=== PATIENT | male | born 1950 | race Caucasian/White ===

== ENCOUNTER 2018-07-18 11:59 | Day surgery (SDC) | payer MEDICARE, BC ==
[2018-07-18] MEDS ORDERED: Lidocaine 1% MPF wEPI 200,000* 30 ML SDV ONE (12:17)
[2018-07-18] MEDS ORDERED: Sodium Bicarbonate 8.4% SYR* 10 ML SYRINGE ONE (12:17)
[2018-07-18] MEDS ORDERED: Lidocain 1% EPI 1:100,000 * 30 ML MDV ONE (12:17)
[2018-07-18 13:07] VITALS: BP 154/78
[2018-07-18] MEDS ORDERED: Bupivacaine 0.5%* 50 ML VIAL ONE (13:57)
--- NOTE | 2018-07-18 20:43 | OP ---
DATE OF OPERATION: 07/18/18 - [facility] DATE OF : 52 SURGEON: Edwar Rodríguez MD ASSISTANTS: DERREK Dos Santos ANESTHESIOLOGIST: None. ANESTHESIA: Local only with 1% lidocaine with epinephrine and bicarbonate. PRE-OP DIAGNOSES: 1. Left trigger thumb. 2. Left thumb A1 denilson nodule. POST-OP DIAGNOSES: 1. Left trigger thumb. 2. Left thumb A1 denilson nodule. OPERATIVE PROCEDURES: 1. Left thumb trigger thumb release of A1 denilson. 2. Excision of left thumb A1 denilson tendon sheath nodule. INDICATIONS: Chris has a trigger thumb. He has had injections by Dr. Fisher. We had talked about risks and benefits. He wanted to proceed with the procedure to see if he could get some relief from the trigger thumb and the symptoms as he is looking to play the guitar and it is starting to bother him and make it unable for him to play the guitar. ESTIMATED BLOOD LOSS: 1 mL. COMPLICATIONS: None. FINDINGS: See above and below. DESCRIPTION OF PROCEDURE: Chris was seen in the preoperative holding area. The correct site and side of the procedure were identified. We came back to the operating room. The arm was prepped and draped in the usual fashion. A time out was performed. The arm was exsanguinated with the Esmarch and the tourniquet was inflated to 250 mmHg. I went ahead and made a 1 cm transverse incision in the MP joint flexion crease over the left thumb. Dissection was carried down, and full-thickness flaps were bluntly raised off of the tendon sheath nodule. The digital nerves were identified and retracted with Ragnell retractors. I went ahead and excised the nodule with a 15-blade and this was handed off as a specimen. I was then able to see the tendon sheath and I incised the A1 denilson releasing the trigger thumb. I then had him flex and extend the thumb multiple times to make sure that there was no catching. Everything was looking very good. The digital nerves were again inspected and found to be intact. I went ahead and closed the skin with 4-0 nylon suture. Soft dressings were applied. Tourniquet was deflated. I had used a forearm tourniquet at 225 mmHg throughout the procedure. The thumb pinked up rather quickly. He was then taken to the recovery room in stable condition. [id number] #: [id number] [place]
== END 2018-07-18 14:32 | disposition home or self-care (01) ==
LOC: OR 11:59
PROVIDERS: ATTEND Orthopaedic Surgery Hand Surgery
DX: M65.312 Trigger thumb, left thumb (principal); M67.442 Ganglion, left hand; Z87.891 Personal history of nicotine dependence
CPT/HCPCS: 88304; J2001